=== PATIENT | male | born 1990 | race Caucasian/White ===

== ENCOUNTER 2017-02-19 22:30 | Emergency (ER) | payer SELFPAY ==
[~2017-02-19] VITALS: Ht 170.2 cm; Wt 67.1 kg
[2017-02-19 22:32] VITALS: BP 112/74
--- NOTE | 2017-02-19 22:45 | NUR ---
TO ER BED 8
--- NOTE | 2017-02-19 22:50 | NUR ---
PATIENT PRESENTS TO ED WITH RT SIDE BODY NUMBNESS, SORETHROAT, DIFF OF BREATHING STARTED AT 2220HOURS. PT DENIES N/V/D; SKIN IS PINK/WARM/DRY; AAOX4 WITH EVEN AND STEADY GAIT; LUNGS CLEAR BL; HR EVEN AND REGULAR; PT DENIES ANY FEVER OR CHEST PAIN AT THIS TIME; PATIENT STATES PAIN OF 7/10 AT THIS TIME; VSS; PATIENT POSITIONED FOR COMFORT; HOB ELEVATED; BEDRAILS UP X2; BED DOWN. ER MD MADE AWARE OF PT STATUS.
--- NOTE | 2017-02-19 22:52 | NUR ---
EKG DONE AT BEDSIDE
[2017-02-19] MEDS ORDERED: LORazepam 1 MG TAB PO ONE (23:05)
[2017-02-20 00:13] VITALS: BP 112/74
--- NOTE | 2017-02-20 00:13 | NUR ---
Patient discharged with v/s stable. Written and verbal after care instructions given and explained. Patient verbalized understanding. Ambulatory with steady gait. All questions addressed prior to discharge. Advised to follow up with PMD.
== END 2017-02-20 00:13 | disposition home or self-care (01) ==
LOC: MED 22:30
DX: F41.8 Other specified anxiety disorders (principal)
CPT/HCPCS: 99283